=== PATIENT | female | born 2000 | race Caucasian/White ===

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

== ENCOUNTER 2021-07-16 00:30 | Emergency (ER) | payer OTHER ==
[~2021-07-16] VITALS: Ht 165.1 cm; Wt 104.3 kg
[2021-07-16 00:38] VITALS: BP_SYST 159
[2021-07-16] MEDS ORDERED: cefTRIAXone 1 GM in LIDOCAINE 1%, 20 ML MDV 2.1 ML IM ONE (00:45)
[2021-07-16] MEDS ORDERED: BACITRACIN 1 GM OINT TP ONE (00:45)
[2021-07-16] MEDS ORDERED: DIPH-TET-PERTUS Vaccine 0.5 ML VIAL (ADACEL) I.M. ONE (00:45)
[2021-07-16] MEDS ORDERED: IBUPROFEN 600 MG TABLET PO ONE (01:15)
[2021-07-16] MEDS ORDERED: CLIN-142 PO (01:52)
[2021-07-16] MEDS ORDERED: NAPR-1172 PO (01:52)
[2021-07-16 02:03] VITALS: BP_SYST 139
== END 2021-07-16 02:03 | disposition home or self-care (01) ==
LOC: SED 00:30
DX: S61.432A Puncture wound without foreign body of left hand, initial encounter (principal); S60.512A Abrasion of left hand, initial encounter; W54.0XXA Bitten by dog, initial encounter; Y93.89 Activity, other specified; Y92.89 Other specified places as the place of occurrence of the external cause; Y99.8 Other external cause status
CPT/HCPCS: 73120; 90471; 90715; 96372; 99284; J0696; J2001